=== PATIENT | female | born 1965 | race Caucasian/White ===

== ENCOUNTER → 2018-05-15 | Outpatient (CLI) | payer MEDICAID ==
--- NOTE | 2018-05-16 10:52 | XR ---
Right ankle HISTORY: Right ankle pain 3 views of the right ankle No comparisons Bone mineralization, joint spaces and alignment are maintained. No fracture or dislocation. IMPRESSION: No significant abnormalities evident.
== END | disposition home or self-care (01) ==
LOC: RADXRMAIN 17:14
PROVIDERS: ATTEND Family Medicine
DX: M25.571 Pain in right ankle and joints of right foot (principal)

== ENCOUNTER 2021-10-20 17:27 | Observation (INO) | payer BC, MEDICAID ==
[2021-10-20] MEDS ORDERED: ASPIRIN 81 MG PO STA (17:56)
[2021-10-20] MEDS ORDERED: NITROGLYCERIN OINT 1 INCH/GM PACKET TOPICAL STA (17:56)
--- NOTE | 2021-10-20 18:01 | ED ---
General Adult HPI - General Chief complaint: Chest Pain Stated complaint: chest pain Time Seen by Provider: 10/20/21 17:35 Source: patient, RN notes reviewed, old records reviewed Mode of arrival: wheelchair Limitations: no limitations - History of Present Illness Initial comments: This is a 56-year-old female who presents emergency Department complaining of chest tightness. Patient states started this morning when she woke up at 4:00 she states it radiates to the right jaw but it only lasts a few minutes and goes away and then comes back after that. Patient denies any shortness of breath associated with it. Patient denies any diaphoretic episodes. Patient denies any nausea or vomiting. Patient states she has also been having some episodes in the middle night where her hands and feet are swollen and somewhat painful when she wakes up. Patient denies any fever chills which she states she has been coughing quite a bit lately. Patient also complains of right calf pain. Patient denies any history trauma denies any control denies any recent trips or travel. - Related Data Home Medications Medication Instructions Recorded Confirmed Cyanocobalamin (Vitamin B-12) 1,000 mcg PO DAILY 10/20/21 10/20/21 [Vitamin B-12] Multivitamins, Thera [Multivitamin 1 tab PO DAILY 10/20/21 10/20/21 (formulary)] metFORMIN HCL 500 mg PO AC-BID 10/20/21 10/20/21 Allergies Allergy/AdvReac Type Severity Reaction Status Date / Time No Known Allergies Allergy Verified 10/20/21 17:35 Review of Systems ROS Statement: Those systems with pertinent positive or pertinent negative responses have been documented in the HPI. ROS Other: All systems not noted in ROS Statement are negative. Past Medical History Past Medical History: Diabetes Mellitus History of Any Multi-Drug Resistant Organisms: None Reported Past Surgical History: Cholecystectomy Additional Past Surgical History / Comment(s): right side ovaries removed, thyroid Past Psychological History: Anxiety Smoking Status: Former smoker Past Alcohol Use History: Occasional Past Drug Use History: None Reported General Exam - General Exam Comments Initial Comments: GENERAL: Patient is well-developed and well-nourished. Patient is nontoxic and well-hydr ated and is in mild distress. ENT: Neck is soft and supple. No significant lymphadenopathy is noted. Oropharynx is clear. Moist mucous membranes. Neck has full range of motion without eliciting any pain. EYES: The sclera were anicteric and conjunctiva were pink and moist. Extraocular movements were intact and pupils were equal round and reactive to light. Eyelids were unremarkable. PULMONARY: Unlabored respirations. Good breath sounds bilaterally. No audible rales rhonchi or wheezing was noted. CARDIOVASCULAR: There is a regular rate and rhythm without any murmurs gallops or rubs. ABDOMEN: Soft and nontender with normal bowel sounds. SKIN: Skin is clear with no lesions or rashes and otherwise unremarkable. NEUROLOGIC: Patient is alert and oriented x3. Cranial nerves II through XII are grossly intact. Motor and sensory are also intact. Normal speech, volume and content. Symmetrical smile. MUSCULOSKELETAL: Normal extremities with adequate strength and full range of motion. No lower extremity swelling or edema. No calf tenderness. 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 Patient's EKG shows no ST segment elevation or depression. Chest x-ray shows no acute abnormality. Patient has no physician to follow-up with and she somewhat uncomfortable going home so the patient will be admitted. I spoke with Dr. Xiong he agreed to admit the patient admitted the patient wrote admitting orders. - Lab Data Result diagrams: 10/20/21 18:45 10/20/21 18:45 Lab Results 10/20/21 10/20/21 10/20/21 Range/Units 18:45 18:45 18:45 WBC 6.2 (3.8-10.6) k/uL RBC 5.01 (3.80-5.40) m/uL Hgb 14.0 (11.4-16.0) gm/dL Hct 41.7 (34.0-46.0) % MCV 83.2 (80.0-100.0) fL MCH 28.0 (25.0-35.0) pg MCHC 33.7 (31.0-37.0) g/dL RDW 13.0 (11.5-15.5) % Plt Count 329 (150-450) k/uL MPV 6.4 Neutrophils % 51 % Lymphocytes % 41 % Monocytes % 4 % Eosinophils % 3 % Basophils % 1 % Neutrophils # 3.2 (1.3-7.7) k/uL Lymphocytes # 2.5 (1.0-4.8) k/uL Monocytes # 0.2 (0-1.0) k/uL Eosinophils # 0.2 (0-0.7) k/uL Basophils # 0.0 (0-0.2) k/uL PT 10.2 (9.0-12.0) sec INR 0.9 (<1.2) APTT 21.8 L (22.0-30.0) sec Sodium 141 (137-145) mmol/L Potassium 4.1 (3.5-5.1) mmol/L Chloride 103 (98-107) mmol/L Carbon Dioxide 30 (22-30) mmol/L Anion Gap 8 mmol/L BUN 18 H (7-17) mg/dL Creatinine 0.67 (0.52-1.04) mg/dL Est GFR (CKD-EPI)AfAm >90 (>60 ml/min/1.73 sqM) Est GFR (CKD-EPI)NonAf >90 (>60 ml/min/1.73 sqM) Glucose 106 H (74-99) mg/dL Calcium 9.5 (8.4-10.2) mg/dL Magnesium 2.0 (1.6-2.3) mg/dL Total Bilirubin 0.4 (0.2-1.3) mg/dL AST 26 (14-36) U/L ALT 25 (4-34) U/L Alkaline Phosphatase 76 (38-126) U/L Troponin I (0.000-0.034) ng/mL Total Protein 7.7 (6.3-8.2) g/dL Albumin 4.5 (3.5-5.0) g/dL 10/20/21 Range/Units 18:45 WBC (3.8-10.6) k/uL RBC (3.80-5.40) m/uL Hgb (11.4-16.0) gm/dL Hct (34.0-46.0) % MCV (80.0-100.0) fL MCH (25.0-35.0) pg MCHC (31.0-37.0) g/dL RDW (11.5-15.5) % Plt Count (150-450) k/uL MPV Neutrophils % % Lymphocytes % % Monocytes % % Eosinophils % % Basophils % % Neutrophils # (1.3-7.7) k/uL Lymphocytes # (1.0-4.8) k/uL Monocytes # (0-1.0) k/uL Eosinophils # (0-0.7) k/uL Basophils # (0-0.2) k/uL PT (9.0-12.0) sec INR (<1.2) APTT (22.0-30.0) sec Sodium (137-145) mmol/L Potassium (3.5-5.1) mmol/L Chloride (98-107) mmol/L Carbon Dioxide (22-30) mmol/L Anion Gap mmol/L BUN (7-17) mg/dL Creatinine (0.52-1.04) mg/dL Est GFR (CKD-EPI)AfAm (>60 ml/min/1.73 sqM) Est GFR (CKD-EPI)NonAf (>60 ml/min/1.73 sqM) Glucose (74-99) mg/dL Calcium (8.4-10.2) mg/dL Magnesium (1.6-2.3) mg/dL Total Bilirubin (0.2-1.3) mg/dL AST (14-36) U/L ALT (4-34) U/L Alkaline Phosphatase (38-126) U/L Troponin I <0.012 (0.000-0.034) ng/mL Total Protein (6.3-8.2) g/dL Albumin (3.5-5.0) g/dL Disposition Clinical Impression: Chest pain Disposition: ADMITTED IP TO THIS HOSP Referrals: Rajani Carney MD [Primary Care Provider] - 1-2 days Time of Disposition: 20:37
[2021-10-20 19:01] LABS: Basophils % (A) 1 %; Eosinophils # (A) 0.2 k/uL (0-0.7); Eosinophils % (A) 3 %; HCT 41.7 % (34.0-46.0); Lymphocytes # (A) 2.5 k/uL (1.0-4.8); Lymphocytes % (A) 41 %; MCHC 33.7 g/dL (31.0-37.0); MCV 83.2 fL (80.0-100.0); Mean Platelet Volume 6.4; Monocytes # (A) 0.2 k/uL (0-1.0); Monocytes % (A) 4 %; Neutrophils # (A) 3.2 k/uL (1.3-7.7); Neutrophils % (A) 51 %; Platelet Count 329 k/uL (150-450); RBC 5.01 m/uL (3.80-5.40); WBC 6.2 k/uL (3.8-10.6)
--- NOTE | 2021-10-20 19:05 | XR ---
EXAMINATION TYPE: XR chest 2V DATE OF EXAM: 10/20/2021 COMPARISON: NONE HISTORY: Chest pain TECHNIQUE: Frontal and lateral views of the chest are obtained. FINDINGS: There is no focal air space opacity, pleural effusion, or pneumothorax seen. The cardiac silhouette size is within normal limits. The osseous structures are intact. Cholecystectomy clips s een. IMPRESSION: No acute cardiopulmonary process.
[2021-10-20 19:20] LABS: ALT 25 U/L (4-34); AST 26 U/L (14-36); African American GFR (CKD) >90 (>60 ml/min/1.73 sqM); Albumin 4.5 g/dL (3.5-5.0); Alkaline Phosphatase 76 U/L (38-126); Anion Gap 8 mmol/L; Blood Urea Nitrogen 18 mg/dL (7-17); Calcium 9.5 mg/dL (8.4-10.2); Carbon Dioxide 30 mmol/L (22-30); Chloride 103 mmol/L (98-107); Glucose 106 mg/dL (74-99); Non-African American GFR(CKD) >90 (>60 ml/min/1.73 sqM); Potassium 4.1 mmol/L (3.5-5.1); Sodium 141 mmol/L (137-145); Total Bilirubin 0.4 mg/dL (0.2-1.3); Total Protein 7.7 g/dL (6.3-8.2)
[2021-10-20 19:23] LABS: INR 0.9 (<1.2); Prothrombin Time 10.2 sec (9.0-12.0)
[2021-10-20 19:32] LABS: Partial Thromboplastin Time 21.8 sec (22.0-30.0)
[2021-10-20] MEDS ORDERED: NITROGLYCERIN SL TABS 0.4 MG TAB SUBLINGUAL PRN (20:38)
--- NOTE | 2021-10-20 20:58 | US ---
EXAMINATION TYPE: US venous doppler duplex LE RT DATE OF EXAM: 10/20/2021 8:41 PM COMPARISON: NONE CLINICAL HISTORY: calf pain. Pain throughout right lower extremity SIDE PERFORMED: Right TECHNIQUE: The lower extremity deep venous system is examined utilizing real time linear array sonog shola with graded compression, doppler sonography and color-flow sonography. VESSELS IMAGED: Common Femoral Vein Deep Femoral Vein Greater Saphenous Vein * Femoral Vein Popliteal Vein Small Saphenous Vein * Proximal Calf Veins (* superficial vessels) PTV Peroneal Right Leg: Negative for DVT IMPRESSION: No evidence of right lower extremity DVT.
[2021-10-21] MEDS: NITROGLYCERIN OINT 1 INCH/GM PACKET TOPICAL SCH ×2 (00:30→05:32)
--- NOTE | 2021-10-21 06:29 | P.HPIM ---
History of Present Illness H&P Date: 10/20/21 Chief Complaint: intermittent chest pain 56-year-old female with diabetes mellitus Patient comes in complaining of intermittent chest pain usually with exertion she describes the pain as chest pressure and tightness that she feels retrosternally radiates to the jaw sometimes happens at rest but usually with exertion. She had a stress test in the past which was negative no other cardiac history. She denies any smoking drug abuse or alcohol. She denies any premature CAD in the family. However she does have history of diabetes mellitus. Patient takes aspirin at home She also reports some dry coughing at night but denies any orthopnea or paroxysmal dyspnea. She denies any recent travel or hospital stay she denies any history of blood clots. Initial workup in the ED was unremarkable patient admitted to rule out acute coronary syndrome Chest x-ray showed no acute process EKG no acute ST changes Venous tip looks ultrasound of the legs was negative for DVT Review of Systems Pertinent positives as noted in HPI. All other systems were reviewed and are negative Past Medical History Past Medical History: Diabetes Mellitus History of Any Multi-Drug Resistant Organisms: None Reported Past Surgical History: Cholecystectomy Additional Past Surgical History / Comment(s): right side ovaries removed, thyroid Past Psychological History: Anxiety Smoking Status: Never smoker Past Alcohol Use History: Occasional Past Drug Use History: None Reported - Past Family History Family Family Medical History: No Reported History Medications and Allergies Home Medications Medication Instructions Recorded Confirmed Type Cyanocobalamin (Vitamin B-12) 1,000 mcg PO DAILY 10/20/21 10/20/21 History [Vitamin B-12] Multivitamins, Thera [Multivitamin 1 tab PO DAILY 10/20/21 10/20/21 History (formulary)] metFORMIN HCL 500 mg PO AC-BID 10/20/21 10/20/21 History Allergies Allergy/AdvReac Type Severity Reaction Status Date / Time No Known Allergies Allergy Verified 10/20/21 17:35 Physical Exam Vitals: Vital Signs Temp Pulse Pulse Pulse Resp BP BP 10/21/21 01:17 97.6 F 59 L 15 138/82 10/20/21 22:37 97.8 F 72 16 144/79 10/20/21 18:57 68 18 142/70 10/20/21 18:27 62 10/20/21 17:35 97.8 F 74 20 194/94 Pulse Ox 10/21/21 01:17 100 10/20/21 22:37 96 10/20/21 18:57 100 10/20/21 18:27 10/20/21 17:35 100 Intake and Output 10/20/21 10/20/21 10/21/21 14:59 22:59 06:59 Other: # Voids 1 Weight 83.007 kg Constitutional: No acute distress, conversant, pleasant Eyes: Anicteric sclerae, moist conjunctiva, Pupils equal round reactive to light ENMT: NC/AT Oropharynx clear, no erythema, or exudates Neck: Supple, FROM, no masses, or JVD No carotid bruits No thyromegaly Lungs: Clear to auscultation Clear to percussion Normal respiratory effort, no accessory muscle use Cardiovascular: Heart regular in rate and rhythm, No murmurs, gallops, or rubs No peripheral edema Abdominal: Soft Nontender, no guarding, rebound or rigidity Abdomen moving with respiration Normoactive bowel sounds No hepatomegaly, No splenomegaly No palpable mass No abdominal wall hernia noted Skin: Normal temperature, tone, texture, turgor No induration No subcutaneous nodules No rash, lesions No ulcers Extremities: No digital cyanosis No clubbing Pedal pulses intact and symmetrical Radial pulses intact and symmetrical No calf tenderness Psychiatric: Alert and oriented to person, place and time Appropriate affect fair judgement Neuro Muscles Strength 5/5 in all 4 extremities Sensation to light touch grossly present throughout Cranial nerves II-XII grossly intact No focal sensory deficits Lymphatics: no palpable cervical or supraclavicular , or inguinal lymph nodes Results CBC & Chem 7: 10/20/21 18:45 10/20/21 18:45 Labs: Abnormal Lab Results - Last 24 Hours (Table) 10/20/21 10/20/21 Range/Units 18:45 18:45 APTT 21.8 L (22.0-30.0) sec BUN 18 H (7-17) mg/dL Glucose 106 H (74-99) mg/dL Assessment and Plan Assessment: Atypical chest pain rule out ACS Trend troponins Cardiology consult conveyor monitor Aspirin Nitro when necessary Monitor vital signs EKG no acute ST changes Chest x-ray no acute cardiopulmonary process Venous duplex ultrasound of the legs no acute DVT Diabetes mellitus Insulin sliding scale Heparin subcu 3 times a day for DVT prophylaxis Full code Anticipated length of stay less than 2 midnights
[2021-10-21 07:55] LABS: Glucose,Whole Blood 108 mg/dL (75-99)
[2021-10-21] MEDS ORDERED: HEPARIN SODIUM,PORCINE/PF 5,000 UNIT/0.5 ML SYRINGE SQ SCH (08:00)
[2021-10-21] MEDS ORDERED: SODIUM CHLORIDE 0.9% 1,000 ML IV SCH (08:30)
[2021-10-21] MEDS: INSULIN ASPART (NovoLOG) 100 UNIT/ML VIAL SQ SCH ×2 (08:47→13:00)
[2021-10-21 09:00] LABS: Chol/HDL Ratio 3.36 Ratio; LDL Cholesterol,Calculated 113.1 mg/dL (0.0-131.0); VLDL Calculation 16.08 mg/dL (5.00-40.00)
[2021-10-21] MEDS ORDERED: ASPIRIN 325 MG TAB PO SCH (09:00)
[2021-10-21] MEDS ORDERED: ASPIRIN 81 MG PO SCH (09:00)
--- NOTE | 2021-10-21 10:53 | CONS ---
CONSULTATION HISTORY OF PRESENT ILLNESS: This is a 56-year-old lady with type 2 diabetes and some anxiety. She sees Dr. Camejo in the outpatient setting. She came into the hospital with complaints of having some tightness and pressure in the chest. This occurred while she was working at her desk. Then she started having some discomfort in the right side of her jaw. With these symptoms, she came in. The symptoms were somewhat random. She had these episodes on and off, but the 1 that brought her in was that she woke up with these kind of symptoms. She is asymptomatic, feels well. She is a bit anxious. Troponins are normal. EKG is unremarkable. She is resting comfortably without symptoms. She takes metformin for type 2 diabetes mellitus. PAST MEDICAL HISTORY: 1. Type 2 diabetes mellitus. 2. History of some ovarian cyst or mass which was taken out, noncancerous, and she also has a history of some thyroid issues, details unclear. MEDICATIONS: Include metformin 500 mg b.i.d. and multivitamins. ALLERGIES: None. PHYSICAL EXAMINATION: On examination, blood pressure is 118/70, pulse rate is 56 per minute, regular. HEENT unremarkable. Fundus was not examined by me. NECK is supple. No JVD. I do not hear a carotid bruit. HEART exam reveals S1, S2 heard normally in all areas. No rub, murmur or gallop. LUNGS are clear. ABDOMEN: Soft, nontender. Lower EXTREMITIES: The lower extremities revealed palpable pulses. There is no edema. CENTRAL NERVOUS SYSTEM grossly within normal limits. EKG reveals sinus mechanism, no acute changes. LAB DATA: Reveals unremarkable troponins. IMPRESSION: 1. Atypical chest pain. 2. Type 2 diabetes mellitus. RECOMMENDATIONS: I will perform a stress echo, increase activity, perform stress echo. If this is normal she can be discharged and followed up as an outpatient. I am recommending that we add a small dose of Ken or ARB given her diabetes. She should also be on a statin agent as well. Thank you very much for the consult. MMODL / IJN: [id number] /
[2021-10-21 11:35] LABS: Glucose,Whole Blood 116 mg/dL (75-99)
[2021-10-21 14:09] VITALS: BP 147/83; PULSE 60; RESP 20; TEMP 97.5
--- NOTE | 2021-10-21 14:23 | ECHOS ---
STRESS ECHOCARDIOGRAM DATE OF SERVICE: 10/21/2021 INDICATIONS: Chest pain BASELINE HEART RATE: 88 BASELINE BLOOD PRESSURE: 151/22 MAXIMUM HEART RATE: 156 MAXIMUM BLOOD PRESSURE: 180/68 85% MPHR: 141 100% MPHR: 166 METS: 10.1 MAXIMUM STAGE REACHED: II TOTAL EXERCISE TIME: 9:06 RESULTS: Baseline EKG revealed normal sinus rhythm without significant ST changes. Patient walked on standard [place] protocol for 9 minutes 6 seconds achieved a maximal heart rate of 156 beats per minute which is well above 85% of predicted maximal. She developed fatigue and shortness of breath but did not have any angina. There was no arrhythmia. EKG did not reveal any ST-segment changes to indicate ischemia. By EKG criteria, this is a negative stress test with fair exercise capacity. Baseline echo images revealed normal wall motion, wall thickening of all segments. At peak exercise, there was good augmentation of left ventricular wall motion and wall thickening of all segments, suggesting that there is no evidence of stress-induced ischemia on this study. IMPRESSION: 1. Fair exercise capacity with a negative stress test by EKG criteria. 2. Normal stress echocardiogram without evidence of ischemia. MMODL / IJN: [id number] /
--- NOTE | 2021-10-21 14:36 | P.DS ---
Providers Date of admission: 10/20/21 20:38 Expected date of discharge: 10/21/21 Attending physician: Milvia Xiong MD Primary care physician[facility] Course: Discharge Diagnosis: Atypical chest pain, acute coronary event ruled out. Type II [id number] diabetes mellitus, continue metformin 500 mg twice a day Hypertension, patient started on losartan 25 mg nightly. Hospital Course: Patient is a 56-year-old female with a past medical history of diabetes mellitus on metformin. She presented to the emergency department with the chief complaint of chest pain/tightness radiating up into her right jaw. Patient states this occurs at rest and with exertion but typically occurs at night. Patient reports in addition she's also been experiencing a dry cough only at night. She was seen and fully evaluated in the emergency department. An EKG was completed revealing normal sinus rhythm at 77 bpm with no noted T-wave or ST abnormalities showing no signs of acute ischemia. Troponins trended 3 draws negative resulting at less than 0.012. CBC and CMP were unremarkable. Right lower extremity Doppler was negative for DVT. Chest x-ray negative for acute cardiopulmonary process. Patient was admitted under our services with consultation to cardiology. She was monitored closely with telemetry monitoring overnight and underwent a stress echo test which revealed fair exercise capacity with a negative stress test, normal stress echocardiogram without evidence of ischemia. Cardiology recommending starting patient on losartan and atorvastatin secondary to her history with diabetes mellitus. Patient is medically clear and is cleared from cardiac standpoint for discharge home at this time. Prescriptions were sent to pharmacy. Patient to follow-up with PCP and cardiology. Physical examination: Patient seen and examined at bedside. She reports that she is currently free from chest pain and/or jaw pain and denies having any shortness of breath, dizziness, lightheadedness, or experiencing any numbness/tingling/weakness in her extremities. She reports that it was previously waxing and waning and currently denies. Patient does report this mainly occurs during the night. Discussed with patient she may likely need a sleep study will be provided with contact information for a engineering program manager upon discharge. And also educated on reflux and it was suggested that she begin a PPI and avoid eating and/or drinking 2 hours prior to lying down to bed. Vital signs reviewed and stable. General: Nontoxic, no distress and appears stated age. Derm: Skin warm and dry, normal coloration for ethnicity. Head: Atraumatic, normocephalic and symmetric. Eyes: EOMs intact, no lid lag, and anicteric sclera Mouth: no lip lesions, mucus membranes moist Cardiovascular: regular rate and rhythm with normal S1S2, no murmur, positive posterior tibial pulses bilaterally, and cap refill < 2 seconds. Lungs: Respirations even, regular, and unlabored on room air. Lungs CTA bilaterally, no rhonchi, no rales, no wheezing, and no accessory muscle usage. Abdominal: soft, nontender to palpation, no guarding, no appreciable organomegaly Ext: ROM intact. No gross muscle atrophy, no edema, no contractures Neuro: Speech clear, face symmetrical and CN II-XII grossly intact with no noted focal neuro deficits Psych: Alert and oriented to person, place, time, and situation. Appropriate and pleasant affect. A total of 35 minutes of time were spent preparing this complex discharge summary. Patient Condition at Discharge: Stable Plan - Discharge Summary New Discharge Prescriptions: New Losartan [Cozaar] 25 mg PO HS 30 Days #30 tab Atorvastatin [Lipitor] 20 mg PO DAILY 30 Days #30 tab Continue Multivitamins, Thera [Multivitamin (formulary)] 1 tab PO DAILY metFORMIN HCL 500 mg PO AC-BID Cyanocobalamin (Vitamin B-12) [Vitamin B-12] 1,000 mcg PO DAILY Discharge Medication List Cyanocobalamin (Vitamin B-12) [Vitamin B-12] 1,000 mcg PO DAILY 10/20/21 [History] Multivitamins, Thera [Multivitamin (formulary)] 1 tab PO DAILY 10/20/21 [History] metFORMIN HCL 500 mg PO AC-BID 10/20/21 [History] Atorvastatin [Lipitor] 20 mg PO DAILY 30 Days #30 tab 10/21/21 [Rx] Losartan [Cozaar] 25 mg PO HS 30 Days #30 tab 10/21/21 [Rx] Follow up Appointment(s)/Referral(s): Jaison Muller MD [STAFF PHYSICIAN] - 1 Week Rajani Carney MD [Primary Care Provider] - 1-2 days [place] Pearce DO [Doctor of Osteopathic Medicine] - 1 Week (Recommend outpatient sleep study) Activity/Diet/Wound Care/Special Instructions: Activity: As tolerated. Take breaks as needed. Diet: Heart healthy and carb consistent diet. Avoid salts, or foods with hidden salts such as canned or boxed foods and frozen dinners. Extra salt makes your heart work harder and traps the fluid in your body for longer. Special Instructions: Take all of your medications as directed and remember to keep all of your doctor's appointments and follow-up as needed. You have been started on new medications losartan and atorvastatin. Thank you for allowing us to participate in your care, it was truly a pleasure having you for our patient!!! Discharge Disposition: HOME SELF-CARE
--- NOTE | 2021-10-21 16:11 | ECHOF ---
Referral Reason:LV function MEASUREMENTS -------- HEIGHT: 162.6 cm WEIGHT: 83.0 kg BP: RVIDd: 2.6 cm (< 3.3) IVSd: 1.1 cm (0.6 - 1.1) LVIDd: 3.7 cm (3.9 - 5.3) LVPWd: 1.0 cm (0.6 - 1.1) IVSs: 1.5 cm LVIDs: 2.3 cm LVPWs: 1.4 cm LA Diam: 2.6 cm (2.7 - 3.8) LAESV Index (A-L): 18.70 ml/m Ao Diam: 2.9 cm (2.0 - 3.7) AV Cusp: 1.9 cm (1.5 - 2.6) MV EXCURSION: 13.536 mm (> 18.000) MV EF SLOPE: 69 mm/s (70 - 150) EPSS: 0.2 cm MV E Rosendo: 0.87 m/s MV DecT: 325 ms MV A Rosendo: 0.83 m/s MV E/A Ratio: 1.05 RAP: 5.00 mmHg RVSP: 30.18 mmHg FINDINGS -------- Sinus rhythm. This was a technically good study. The left ventricular size is normal. There is borderline concentric left ventricular hypertrophy. Overall left ventricular systolic function is normal with, an EF between 55 - 60 %. The right ventricle is normal in size. Normal LA size by volume 22+/-6 ml/m2. The right atrium is normal in size. Interatrial and interventricular septum intact. The aortic valve is trileaflet, and appears structurally normal. No aortic stenosis or regurgitation. There is trace mitral regurgitation. Mild tricuspid regurgitation present. Right ventricular systolic pressure is normal at < 35 mmHg. Trace/mild (physiologic) pulmonic regurgitation. The aortic root size is normal. Normal inferior vena cava with normal inspiratory collapse consistent with estimated right atrial pre ssure of 5 mmHg. There is no pericardial effusion. CONCLUSIONS -------- 1. The left ventricular size is normal. 2. There is borderline concentric left ventricular hypertrophy. 3. Overall left ventricular systolic function is normal with, an EF between 55 - 60 %. 4. The aortic valve is trileaflet, and appears structurally normal. No aortic stenosis or regurgitati on. 5. There is trace mitral regurgitation. 6. Mild tricuspid regurgitation present. 7. Trace/mild (physiologic) pulmonic regurgitation. 8. There is no pericardial effusion. LENS CEMENTER: Francesca Kendrick RDCS
[2021-10-21] MEDS ORDERED: LOSARTAN 25 MG TAB PO SCH (21:00)
[2021-10-22] MEDS ORDERED: ATORVASTATIN 20 MG TAB PO SCH (09:00)
== END 2021-10-21 16:00 | disposition home or self-care (01) ==
LOC: EC 17:27 → 6NMEDSUR 20:38
PROVIDERS: ADMIT Internal Medicine; ATTEND Internal Medicine
DX: R07.89 Other chest pain (principal); I10 Essential (primary) hypertension; E11.9 Type 2 diabetes mellitus without complications; I07.1 Rheumatic tricuspid insufficiency; M79.661 Pain in right lower leg; R05.9 Cough, unspecified; F41.9 Anxiety disorder, unspecified; Z79.82 Long term (current) use of aspirin; Z79.84 Long term (current) use of oral hypoglycemic drugs; Z90.49 Acquired absence of other specified parts of digestive tract; Z87.891 Personal history of nicotine dependence; Z86.39 Personal history of other endocrine, nutritional and metabolic disease; Z90.721 Acquired absence of ovaries, unilateral; Z87.42 Personal history of other diseases of the female genital tract
CPT/HCPCS: 99285; 36415; 93005; 93306; 93351; 80061; 80053; 83735; 84484 ×2; 85025; 85610; 85730; 71046; 93971; G0378 ×2; J1644

== ENCOUNTER → 2022-05-09 | Outpatient (CLI) | payer BC ==
[2022-05-09 15:24] LABS: African American GFR (CKD) >90 (>60 ml/min/1.73 sqM); Blood Urea Nitrogen 19 mg/dL (7-17); Non-African American GFR(CKD) >90 (>60 ml/min/1.73 sqM)
--- NOTE | 2022-05-10 10:29 | CT ---
EXAMINATION TYPE: CT chest abdomen w con DATE OF EXAM: 05/09/2022 COMPARISON: Chest CT July 23, 2014. CT abdomen September 02, 2011 HISTORY: epigastric and abdominal pain CT DLP: 930.6 mGycm. Automated Exposure Control for Dose Reduction was Utilized. CONTRAST: CT scan of the thorax and abdomen are performed with oral and with IV Contrast, patient injected with 70ml mL of Isovue 300. FINDINGS: LUNGS: Some dependent atelectasis bilateral lower lungs. No suspicious focal consolidation. No concer manuel greater than 5 mm pulmonary nodules or masses. There is no pleural effusion or pneumothorax see n. The tracheobronchial tree is patent. MEDIASTINUM: There are no greater than 1 cm hilar or mediastinal lymph nodes. No cardiomegaly or pe ricardial effusion is seen. LIVER/GB: Cholecystectomy clips are redemonstrated. No biliary dilatation is evident. A vague near 1. 0 cm lesion posterior right hepatic dome on prior study is less well-seen on current study, presumed benign. PANCREAS: No significant abnormality is seen. SPLEEN: No significant abnormality is seen. ADRENALS: No significant abnormality is seen. KIDNEYS: Mild right-sided hydronephrosis. No delayed excretion. No hydroureter. BOWEL: Oral contrast does not reach colonic level making evaluation of distal bowel slightly suboptim al. No suspicious small or large bowel dilatation. Normal gas-filled appendix right lower quadrant is partially imaged. LYMPH NODES: No greater than 1cm abdominal lymph nodes are appreciated. OSSEOUS STRUCTURES: No significant abnormality is seen. OTHER: No significant additional abnormality is seen. IMPRESSION: No suspicious mass or adenopathy. No acute findings are evident.
== END | disposition home or self-care (01) ==
LOC: RADCTMAIN 14:13
PROVIDERS: ATTEND Family Medicine
DX: R10.13 Epigastric pain (principal)
CPT/HCPCS: 82565; 84520; 71260; 74160; 36415; Q9967 ×2

== ENCOUNTER → 2023-03-02 | Outpatient (CLI) | payer BC ==
[2023-03-02 16:42] LABS: African American GFR (CKD) >90 (>60 ml/min/1.73 sqM); Blood Urea Nitrogen 18 mg/dL (7-17); Non-African American GFR(CKD) >90 (>60 ml/min/1.73 sqM)
--- NOTE | 2023-03-02 17:58 | CT ---
EXAMINATION TYPE: CT abdomen w con CT DLP: 756.80 mGycm, Automated exposure control for dose reduction was used. DATE OF EXAM: 03/02/2023 5:10 PM COMPARISON: CT chest abdomen 05/09/2022, 09/02/2011 CLINICAL INDICATION:Female, 57 years old with history of K76.89 lesion, R10.13 epigastric pain; EPIGA STRIC PAIN POSS HEPATIC LESION TECHNIQUE: Standard CT of the abdomen following the administration of 100 cc of Isovue 300 IV contr ast material and oral contrast. Coronal and sagittal reformats were performed. FINDINGS: LOWER CHEST: Posterior dependent subsegmental atelectasis is noted. ABDOMEN LIVER: Less prominent appearance of a 9 mm vague hypodense lesion within the right hepatic dome (seri es 4, image 19). This fills in on the delayed phase and probably represents a benign hemangioma. GALLBLADDER AND BILE DUCTS: The gallbladder is surgically absent. PANCREAS: Unremarkable. SPLEEN: Unremarkable. ADRENAL GLANDS: Unremarkable. KIDNEYS AND URETERS: No evidence of hydronephrosis or renal calculus. The kidneys enhance symmetrical ly. STOMACH AND BOWEL: Stomach and duodenum are unremarkable. No focal bowel wall thickening or surroundi ng inflammatory changes. Submucosal fat deposition within the ascending colon. The appendix is within normal limits. No evidence of bowel obstruction. PERITONEUM: No evidence of pneumoperitoneum or free fluid. VASCULATURE: No evidence of aortic aneurysm. MUSCULOSKELETAL: No acute osseous abnormalities LYMPH NODES: No evidence for lymphadenopathy. SOFT TISSUE/ABDOMINAL WALL: Unremarkable IMPRESSION: 1. No acute abdominal process. 2. Less prominent appearance of hepatic lesion when compared to prior examination in 2011. This fills in on the delayed phase and likely represents a benign hemangioma.
== END | disposition home or self-care (01) ==
LOC: RADCTMAIN 15:51
PROVIDERS: ATTEND Family Medicine
DX: K76.89 Other specified diseases of liver (principal); R10.13 Epigastric pain
CPT/HCPCS: 82565; 84520; 74160; 36415; Q9967

== ENCOUNTER → 2024-05-13 | Outpatient (CLI) | payer BC ==
--- NOTE | 2024-05-13 14:10 | MM ---
Reason for Exam: Screening (asymptomatic). Last mammogram was performed 9 year(s) and 10 month(s) ago. Patient History: Menarche at age 13. First Full-Term at age 31. Right ovary removed at age 31. Hysterectomy at age 31. Postmenopausal. Ovarian cancer under age 52. Patient used Hormonal Contraceptives for 1 year. Risk Values: Analisa 5 year model risk: 1.5%. NCI Lifetime model risk: 9.7%. Prior Study Comparison: 06/19/2014 Bilateral Screening Mammogram, [facility]. Tissue Density: There are scattered areas of fibroglandular density. Findings: Analyzed By CAD. Right breast: There is no suspicious group of microcalcifications or new suspicious mass. Left breast: Asymmetry left breast lateral aspect posterior depth on CC view approximately 11.2 cm the nipple. Overall Assessment: Incomplete: need additional imaging evaluation, BI-RAD 0 Management: Diagnostic Mammogram of the left breast. [facility] will attempt to contact patient to return for supplemental views and ultrasound if indicated. Patient should continue monthly self-breast exams. A clinical breast exam by your physician is recommended on an annual basis. This exam should not preclude additional follow-up of suspicious palpable abnormalities. Note on Analisa scores and lifetime risk: 1. A Analisa score greater than 3% is considered moderate risk. If this is the case, consider specialist referral to assess eligibility for a risk reducing agent. 2. If overall lifetime risk for the development of breast cancer is 20% or higher, the patient may qualify for future screening with alternating mammogram and breast MRI. [facility], , 05/13/2024 2:02 PM. Electronically signed and approved by: Mt Wel[place] DO
== END | disposition home or self-care (01) ==
LOC: RADMAMWWP 08:09
PROVIDERS: ATTEND Family Medicine
DX: Z12.31 Encounter for screening mammogram for malignant neoplasm of breast
CPT/HCPCS: 77067

== ENCOUNTER → 2024-11-06 | Outpatient (CLI) | payer BC ==
--- NOTE | 2024-11-06 09:21 | CT ---
EXAMINATION TYPE: CT chest abdomen w con CT DLP: 907.10 mGycm, Automated exposure control for dose reduction was used. DATE OF EXAM: 11/06/2024 9:11 AM COMPARISON: CT abdomen 03/02/2023, CT chest abdomen 05/09/2022 CLINICAL INDICATION:Female, 59 years old with history of Z87.19 PERSONAL HISTORY OF OTHER DISEASES OF THE D; PHH, f/u liver lesions and mid epigastric pain. Technique: Multiple axial images of the chest, abdomen, and pelvis were obtained following the intrav enous administration of 100 mL Isovue-300. Oral contrast was administered. Two-dimensional coronal an d sagittal reconstructions were obtained. Findings: CHEST: LUNGS/ PLEURA: No focal consolidation, pneumothorax, or pleural effusion. No suspicious pulmonary nod ule or mass. AIRWAY: Patent and unremarkable.. HEART: Size within normal limits.No pericardial effusion. No significant coronary artery calcificatio ns. MEDIASTINUM: No evidence of adenopathy. VASCULATURE: No aortic aneurysm. MUSCULOSKELETAL: No acute osseous abnormalities. SOFT TISSUES/LYMPH NODES: Unremarkable. LOWER NECK: Right thyroid gland is atrophic versus surgically absent. ABDOMEN: ABDOMEN LIVER: Previously seen posterior right hepatic lobe lesion is not well visualized on today's exam. GALLBLADDER AND BILE DUCTS: The gallbladder is surgically absent. No biliary ductal dilatation. PANCREAS: Unremarkable. SPLEEN: Unremarkable. ADRENAL GLANDS: Unremarkable. KIDNEYS AND URETERS: No evidence of hydronephrosis or renal calculus. The kidneys enhance symmetrical ly. Contrast is demonstrated within both collecting systems on the delayed phase. STOMACH AND BOWEL: Stomach and duodenum are unremarkable. The appendix is within normal limits. Mild colonic stool burden. Enteric contrast reaches the mid small bowel. No focal bowel wall thickening or surrounding inflammatory changes. No evidence of bowel obstruction. PERITONEUM/RETROPERITONEUM: No evidence of pneumoperitoneum or free fluid. Surgical clips within the right retroperitoneal region. VASCULATURE: No evidence of aortic aneurysm. MUSCULOSKELETAL: No acute osseous abnormalities LYMPH NODES: No evidence for lymphadenopathy. SOFT TISSUE/ABDOMINAL WALL: Unremarkable IMPRESSION: 1. No CT evidence for acute process. 2. Previously seen posterior right hepatic lobe lesion is not well visualized on today's exam. [facility], , 11/06/2024 9:18 AM
== END | disposition home or self-care (01) ==
LOC: RADCTMAIN 08:00
PROVIDERS: ATTEND Family Medicine
DX: R10.13 Epigastric pain (principal); Z87.19 Personal history of other diseases of the digestive system; Z90.49 Acquired absence of other specified parts of digestive tract
CPT/HCPCS: 71260; 74160; Q9967